=== PATIENT | female | born 1990 | race Caucasian/White ===

== ENCOUNTER → 2016-08-17 | Outpatient (CLI) | payer MEDICAID ==
[~2016-08-17] MED LIST: MOTRIN-DPS800 MG PO; NIPPLECREAM TP; PRENATAL VIT1 TAB PO
== END | disposition home or self-care (01) ==
LOC: RAD.S 11:00
DX: Z36 Encounter for antenatal screening of mother (principal); Z3A.35 35 weeks gestation of pregnancy

== ENCOUNTER 2016-09-04 15:19 | Outpatient (CLI) | payer MEDICAID ==
[2016-09-30] MEDS ORDERED: PRENATAL VIT1 TAB PO (15:39)
[2016-09-30] MEDS ORDERED: NIPPLECREAM TP (15:40)
[2016-09-30] MEDS ORDERED: MOTRIN-DPS800 MG PO (15:40)
== END 2016-09-04 16:55 | disposition home or self-care (01) ==
LOC: BC 15:19 → 2LDRP 15:19 → BC 16:55
DX: O47.1 False labor at or after 37 completed weeks of gestation (principal); Z3A.37 37 weeks gestation of pregnancy

== ENCOUNTER 2016-09-27 20:24 | Inpatient (IN) | payer MEDICAID ==
[~2016-09-27] VITALS: Ht 160 cm; Wt 94.3 kg
--- NOTE | ~2016-09-27 | FD ---
ADMIT: 09/27/2016 RM/LOC: 227 [facility] MR#: [id number] [address] [address] GAURAV MISA A [address] [place] [address] Final Diagnosis SEX: F AGE: 25 : 1990 ADMISSION DATE: 09/27/2016 DISCHARGE DATE: 09/29/2016 FINAL DIAGNOSIS: 1. A 25-year-old 4 para 4-0-0-4, status post spontaneous vaginal delivery at 40 weeks 1 day. 2. Chlamydia, status post treatment with negative test of cure. 3. hemorrhage, 600 mL. PROCEDURE: 1. Spontaneous vaginal delivery. 2. Epidural catheter placement and removal. Rosy Gallegos MD Resident / Marlen Justice MD / kavon JOB #: [id number] CC: Marlen Justice MD, Attending Physician Marlen Justice MD, Family Physician
[2016-09-30] MEDS ORDERED: PRENATAL VIT1 TAB PO (15:39)
[2016-09-30] MEDS ORDERED: NIPPLECREAM TP (15:40)
[2016-09-30] MEDS ORDERED: MOTRIN-DPS800 MG PO (15:40)
--- NOTE | 2016-10-29 07:41 | HP ---
ADMIT: 09/27/2016 RM/LOC: 227 [facility] MR#: [id number] [address] [address] MISA NOLASCO [address] [place] [address] History and Physical SEX: F AGE: 25 : 1990 DATE OF SERVICE: CHIEF COMPLAINT: Contractions. HISTORY OF PRESENT ILLNESS: This is a 25-year-old, G4, P 3-0-0-3, with intrauterine at 40 weeks 0 days via second-trimester ultrasound, who presents with regular contractions. The patient reports the contractions started today around noon and have increased in intensity and frequency. She denies leaking of fluid, vaginal bleeding. She reports normal movement. has been complicated by late care, history of low-grade squamous intraepithelial lesion of the cervix, and Chlamydia. Chlamydia was treated during this with negative [id number]. PAST MEDICAL HISTORY: Cervical dysplasia. Denies history of hypertension, asthma, diabetes. PAST SURGICAL HISTORY: No known surgical history. ALLERGIES: NO KNOWN MEDICAL ALLERGIES. MEDICATIONS: vitamin. FAMILY HISTORY: She denies a family history of hypertension, diabetes, cardiovascular disease, or congenital anomalies. REVIEW OF SYSTEMS: She denies headache, changes of vision, chest pain, shortness of breath. No swelling in bilateral lower extremities. PHYSICAL EXAMINATION: VITAL SIGNS: Blood pressure 100/65, pulse 55, she is afebrile, respiratory rate 16, saturating 98% on room air. GENERAL: She is alert and oriented, in acute distress with contractions. HEART: Regular rate and rhythm. LUNGS: Clear to auscultation bilaterally. ABDOMEN: Gravid. Estimated weight is 3500 g. EXTREMITIES: She has no edema in bilateral lower extremities. Distal pulses 2+. heart tones baseline is 120, moderate variability, positive accels, positive decels which are spontaneous and variable. Decels occurred prior to admission. The patient has not had deceleration since time of admission. Sterile vaginal exam 4, 80, -2 per nursing staff upon admission. [place] every 5 to 6 minutes. LABORATORY DATA: Blood type B positive. Direct antibody screen negative. GBS negative. One-hour glucose tolerance test of 133. Hepatitis B negative. RPR negative. HIV negative. Gonorrhea and Chlamydia negative as of 08/16/2016. Normal Pap smear on 08/16/2016. Rubella immune. ASSESSMENT AND PLAN: This is a 25-year-old, 4, para 3-0-0-3, with ADMIT: 09/27/2016 RM/LOC: 227 [facility] MR#: [id number] [address] [place] [id number] [place], [place] [address], [place] [address] History and Physical SEX: F AGE: 25 : 1990 intrauterine at 40 weeks 0 days via second-trimester ultrasound, who presents to the Birthing Center with regular contractions. Due to category II heart rate monitoring, would recommend admission for further monitoring and management of labor. 1. Admit to the Birthing Center. Consents obtained for vaginal delivery, assisted vaginal delivery, or section. Blood type B positive. CBC drawn upon admission. 2. Group B Streptococcus negative. No antibiotic prophylaxis indicated. 3. heart tones reassuring category II. We will continue to monitor throughout the labor process. 4. Maternal well-being. She declines pain medications at this time. Continue to monitor maternal status. The patient was seen and discussed with attending physician. Rosy Gallegos MD Resident / Marlen Justice MD / vick JOB #: [id number] CC: Marlen Justice, Attending Physician Marlen Justice, Family Physician
--- NOTE | 2016-10-29 07:41 | OR ---
ADMIT: 09/27/2016 RM/LOC: 227 [facility] MR#: [id number] [address] [address] GAURAVSAEHA Kerwin [address] [place] [address] Operative/Delivery Room Report SEX: F AGE: 25 : 1990 SURGERY DATE: 09/28/2016 SURGEON: Marlen Justice MD PROCEDURE: Spontaneous vaginal delivery. RESIDENT: Rosy Gallegos MD Resident PRE-PROCEDURE DIAGNOSES: 1. A 25-year-old 4 para 3-0-0-3 with intrauterine at 40 weeks 1 day. 2. Chlamydia, status post treatment with negative test of cure during . 3. Late care. POSTPROCEDURE DIAGNOSIS: A 25-year-old 4 para 4-0-0-4, status post spontaneous vaginal delivery at 40 weeks 1 day. FINDINGS: Viable male infant with a weight of 3630 g. scores of 8 and 9. Normal placenta with 3-vessel cord. ESTIMATED BLOOD LOSS: 200 mL. COMPLICATIONS: None. The patient tolerated the procedure well. HOSPITAL COURSE AND PROCEDURE: This is a 25-year-old -0-0-3 with intrauterine at 40 weeks 1 day, who presented to the Birthing Center, was admitted for regular contractions. The patient was found to make cervical change, and she was admitted for labor management. Pitocin augmentation as well as AROM were performed. Epidural catheter was placed, however, the patient experienced undesired side effects from the anesthetic such as chest pain, shortness of breath, and sensation of unable to swallow, and the epidural catheter was discontinued. The patient had a previous experience very similar with a previous epidural catheter in her first . The patient ultimately progressed to complete and expulsive efforts were begun. The patient was prepped and draped in the normal sterile fashion in the dorsal lithotomy position. With expulsive effort, the infant's head was brought to the perineum. The infant's head delivered over an intact perineum and restituted to the right. Nuchal cord was present and was not reduced. The anterior and posterior shoulder delivered without difficulty. The body ADMIT: 09/27/2016 RM/LOC: 227 [facility] MR#: [id number] [address] [place] [id number] MISA NOLASCO [address], [place] [address] Operative/Delivery Room Report SEX: F AGE: 25 : 1990 followed. The infant was vigorous and crying, and was placed on the maternal abdomen. The was stimulated and bulb suction was performed. After 1 minute of delayed cord clamping, the infant's cord was clamped and cut. Cord blood was collected, cord gas was not collected. Placenta delivered spontaneously with a 3-vessel cord. Pitocin was administered per protocol. The vagina, perineum, and cervix were inspected for lacerations. The patient was noted to have superficial abrasion, bilateral periurethral, which were hemostatic without repair. No other lesions were present. All tissues were hemostatic and all counts were correct x2. At the completion of the procedure, the epidural catheter was removed with the tip intact. Dr. Marlen Justice was present for the entire procedure. Rosy Gallegos MD Resident / Marlen Justice MD / vick JOB #: [id number] CC: Marlen Justice, Attending Physician Marlen Justice, Family Physician
== END 2016-09-29 12:20 | disposition home or self-care (01) | DRG 774 ==
LOC: ER 20:24 → 2LDRP 20:24
PROVIDERS: ADMIT Obstetrics & Gynecology
PROC: 10907ZC Drainage of Amniotic Fluid, Therapeutic from Products of Conception, Via Natural or Artificial Opening (ICD-10-PCS; principal; 2016-09-28)
PROC: 10E0XZZ Delivery of Products of Conception, External Approach (ICD-10-PCS; principal; 2016-09-28)
DX: O69.81X0 Labor and delivery complicated by cord around neck, without compression, not applicable or unspecified (principal); O72.1 Other immediate postpartum hemorrhage; O74.8 Other complications of anesthesia during labor and delivery; R07.9 Chest pain, unspecified; R06.02 Shortness of breath; Z37.0 Single live birth; Z3A.40 40 weeks gestation of pregnancy